=== PATIENT | male | born 2000 | race Caucasian/White ===

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

== ENCOUNTER 2019-02-01 12:58 | Day surgery (SDC) | payer MEDICAID ==
[2019-02-01] MEDS ORDERED: Decadron 4 MG INJ IV ONE (12:59)
[2019-02-01] MEDS ORDERED: Xylocaine-Mpf 2% 5 Ml Vial IJ ONE (12:59)
[2019-02-01] MEDS ORDERED: DIPRIVAN 200 MG/20 ML IV ONE (13:38)
[2019-02-01] MEDS ORDERED: Ketamine HCl 50 MG/ML ONE (13:40)
[2019-02-01] MEDS ORDERED: Lactated Ringers 1,000 ML IV ONE (14:34)
--- NOTE | 2019-02-01 16:01 | XRAY ---
Indication: Left C3-C6 MBB. Intraoperative fluoroscopy was provided for 13 seconds. 2 digital spot images submitted for interpretation demonstrates posterior needle tips projecting over the expected course of the left C3-C6 nerve roots. Correlate with intraoperative findings/report.
--- NOTE | 2019-02-01 16:08 | XRAY ---
13 seconds fluoroscopy time in surgery for left C4-C6 MBB.
== END 2019-02-01 16:07 | disposition home or self-care (01) ==
LOC: SDC-PAIN 12:58
PROVIDERS: ATTEND Psychiatry & Neurology Pain Medicine
DX: M47.812 Spondylosis without myelopathy or radiculopathy, cervical region (principal); J45.909 Unspecified asthma, uncomplicated; F31.9 Bipolar disorder, unspecified; Z79.899 Other long term (current) drug therapy
CPT/HCPCS: 64490; 64491; 64492; 72020; 77002; J1100; J2704

== ENCOUNTER 2019-03-08 14:17 | Day surgery (SDC) | payer MEDICAID ==
[2019-03-08] MEDS ORDERED: Marcaine 0.5% SDV 10 ML IJ ONE (14:18)
[2019-03-08] MEDS ORDERED: Depo-Medrol 40 MG/ML IM ONE (14:18)
[2019-03-08] MEDS ORDERED: Xylocaine 1% Vial 30 ML PF IJ ONE (14:18)
--- NOTE | 2019-03-08 22:49 | XRAY ---
Indication: Right hip injection. Intraoperative fluoroscopy was provided 14 seconds. Single digital spot image submitted for interpretation demonstrates needle tip just lateral to the right femur neck. Small amount of contrast injected for needle tip placement. Correlate with intraoperative findings/report.
--- NOTE | 2019-03-08 22:52 | XRAY ---
18 seconds of fluoroscopy was used surgery for a right intra-articular hip injection.
== END 2019-03-08 16:57 | disposition home or self-care (01) ==
LOC: SDC-PAIN 14:17
PROVIDERS: ATTEND Psychiatry & Neurology Pain Medicine
DX: M16.11 Unilateral primary osteoarthritis, right hip (principal); J45.909 Unspecified asthma, uncomplicated; F31.9 Bipolar disorder, unspecified; Z79.899 Other long term (current) drug therapy
CPT/HCPCS: 20610; 73501; 77002; J1030; J2001; Q9966

== ENCOUNTER 2019-05-10 11:09 | Day surgery (SDC) | payer MEDICAID ==
[2019-05-10] MEDS ORDERED: Depo-Medrol 40 MG/ML IM ONE (11:10)
[2019-05-10] MEDS ORDERED: Marcaine 0.5% SDV 10 ML IJ ONE (11:10)
[2019-05-10] MEDS ORDERED: Ketamine HCl 50 MG/ML ONE (12:38)
[2019-05-10] MEDS ORDERED: DIPRIVAN 200 MG/20 ML IV ONE (12:38)
--- NOTE | 2019-05-10 14:08 | XRAY ---
Indication: Right SI joint injection. Intraoperative fluoroscopy was provided for 8 seconds. 2 digital spot images submitted for interpretation demonstrates posterior needle tip projecting over the inferior right SI joint. Correlate with intraoperative findings/report.
[2019-05-10] MEDS ORDERED: Lactated Ringers 1,000 ML IV ONE (15:41)
--- NOTE | 2019-05-10 16:33 | XRAY ---
8 seconds fluoroscopy time in surgery for right SI joint injection.
== END 2019-05-10 13:00 | disposition home or self-care (01) ==
LOC: SDC-PAIN 11:09
PROVIDERS: ATTEND Psychiatry & Neurology Pain Medicine
DX: M46.1 Sacroiliitis, not elsewhere classified (principal); F41.8 Other specified anxiety disorders; G40.909 Epilepsy, unspecified, not intractable, without status epilepticus; Z79.899 Other long term (current) drug therapy
CPT/HCPCS: 27096; 72020; 77002; J1030; J2704; G0260

== ENCOUNTER 2019-05-31 11:26 | Day surgery (SDC) | payer MEDICAID ==
[2019-05-31] MEDS ORDERED: Decadron 4 MG INJ IV ONE (11:27)
[2019-05-31] MEDS ORDERED: Marcaine 0.5% SDV 10 ML IM ONE (11:27)
[2019-05-31] MEDS ORDERED: DIPRIVAN 200 MG/20 ML IV ONE ×2 (13:13→13:20)
[2019-05-31] MEDS ORDERED: Ketamine HCl 50 MG/ML ONE (13:13)
[2019-05-31] MEDS ORDERED: Lactated Ringers 1,000 ML IV ONE (14:04)
--- NOTE | 2019-05-31 14:19 | XRAY ---
Indication: C2-C4 MBB. Intraoperative fluoroscopy was provided for 17 seconds. 2 digital spot images submitted for interpretation demonstrates posterior needle tips projecting over the expected course of the left C2-C4 nerve roots. Correlate with intraoperative findings/report.
--- NOTE | 2019-05-31 16:43 | XRAY ---
17 seconds fluoroscopy time in surgery for left C2-C4 MBB.
== END 2019-05-31 13:40 | disposition home or self-care (01) ==
LOC: SDC-PAIN 11:26
PROVIDERS: ATTEND Psychiatry & Neurology Pain Medicine
DX: M47.812 Spondylosis without myelopathy or radiculopathy, cervical region (principal); F41.8 Other specified anxiety disorders; F31.9 Bipolar disorder, unspecified; J45.909 Unspecified asthma, uncomplicated; Z79.899 Other long term (current) drug therapy
CPT/HCPCS: 64490; 64491; 72020; 77002; J1100; J2704

== ENCOUNTER 2019-06-01 23:09 | Emergency (ER) | payer MEDICAID ==
[2019-06-02] MEDS ORDERED: SUBLIMAZE 100 MCG/2 ML IV ONE (00:03)
[2019-06-02] MEDS ORDERED: Norflex 60 MG/2 ML IM ONE (00:04)
[2019-06-02] MEDS ORDERED: SUBLIMAZE 100 MCG/2 ML ONE (00:06)
[2019-06-02] MEDS ORDERED: Norflex 60 MG/2 ML ONE (00:06)
[2019-06-02 00:30] VITALS: O2SAT 99
--- NOTE | 2019-06-02 00:43 | ERPHSYRPT ---
- History of Present Illness Time Seen by Provider: 06/02/19 00:03 Source: patient Exam Limitations: no limitations Patient Subjective Stated Complaint: pt states he has been having increased pain since having injection yesterday with dr tucker. states he feels like he is having muscle spasms down his lt side Triage Nursing Assessment: pt alert and oriented, answers questions approp. pt ambulatory with steady gait ntoed. respirations nonlabored with lungs cta. pt rubbing at lt sie of neck and restless in bed. 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 Physician History: Patient is a 19-year-old white male who presents with a complaint of neck pain which radiates into the left shoulder. He has been receiving injections of lidocaine and steroids in the neck on a couple occasions from the pain center. The first was 4 weeks ago the most recent yesterday and he feels like both of increased his discomfort not helped at all. He was playing football a couple years ago when he apparently had a fracture of his neck this was not treated initially and he now has this pain. Timing/Duration: other (His chronic pain.) Severity: moderate Modifying Factors: Improves With: nothing Associated Symptoms: denies symptoms Allergies/Adverse Reactions: No Known Drug Allergies Allergy (Verified 12/03/18 12:51) Home Medications: Dexmethylphenidate HCl [Focalin Xr] 30 mg PO DAILY 08/23/17 [History] Hx Tetanus, Diphtheria Vaccination/Date Given: Yes Hx Influenza Vaccination/Date Given: No Hx Pneumococcal Vaccination/Date Given: No Immunizations Up to Date: Yes - Review of Systems Constitutional: No Fever, No Chills Eyes: No Symptoms Ears, Nose, & Throat: No Symptoms Respiratory: No Cough, No Dyspnea Cardiac: No Chest Pain, No Edema, No Syncope Abdominal/Gastrointestinal: No Abdominal Pain, No Nausea, No Vomiting, No Diarrhea Genitourinary Symptoms: No Dysuria Musculoskeletal: Neck Pain, Injury, Joint Pain, No Back Pain Skin: No Rash Neurological: No Dizziness, No Focal Weakness, No Sensory Changes Psychological: No Symptoms Endocrine: No Symptoms All Other Systems: Reviewed and Negative - Past Medical History Pertinent Past Medical History: Yes Neurological History: Seizures, Other ENT History: No Pertinent History Cardiac History: No Pertinent History Respiratory History: Asthma Endocrine Medical History: No Pertinent History Musculoskeletal History: No Pertinent History GI Medical History: No Pertinent History History: No Pertinent History Psycho-Social History: Attention Deficit Disorder, Other Male Reproductive Disorders: No Pertinent History Other Medical History: meningitis, hx of cervical fx with chronic pain - Past Surgical History Past Surgical History: Yes Neuro Surgical History: No Pertinent History Cardiac: No Pertinent History Respiratory: No Pertinent History Gastrointestinal: No Pertinent History Genitourinary: No Pertinent History Musculoskeletal: No Pertinent History Male Surgical History: No Pertinent History Other Surgical History: TONSILS - Social History Smoking Status: Current some day smoker How long have you smoked: 1yr Exposure to second hand smoke: Yes Alcohol Use: None Drug Use: marijuana Patient Lives Alone: No Significant Family History: no pertinent family hx - Nursing Vital Signs Nursing Vital Signs: Initial Vital Signs Temperature 97.3 F 06/01/19 23:13 Pulse Rate 92 H 06/01/19 23:13 Respiratory Rate 20 06/01/19 23:13 Blood Pressure 147/108 06/01/19 23:13 O2 Sat by Pulse Oximetry 95 06/01/19 23:13 Pain Scale Pain Intensity 7 - Physical Exam General Appearance: mild distress, alert Eye Exam: PERRL/EOMI, eyes nml inspection Ears, Nose, Throat Exam: normal ENT inspection, TMs normal, pharynx normal, moist mucous membranes Neck Exam: normal inspection, limited range of motion, midline tenderness Respiratory Exam: normal breath sounds, lungs clear, No respiratory distress Cardiovascular Exam: regular rate/rhythm, normal heart sounds, normal peripheral pulses Gastrointestinal/Abdomen Exam: soft, normal bowel sounds, No tenderness, No mass Back Exam: normal inspection, normal range of motion, No CVA tenderness, No vertebral tenderness Extremity Exam: normal inspection, normal range of motion, pelvis stable Neurologic Exam: alert, oriented x 3, cooperative, normal mood/affect, nml cerebellar function, nml station & gait, sensation nml, No motor deficits Skin Exam: normal color, warm, dry, No rash Lymphatic Exam: No adenopathy SpO2: 99 - Radiology Exams Left Shoulder X-ray Interpretation: Interpreted by me, Negative C-Spine X-ray Interpretation: Interpreted by me, Other (Loss of lordosis suggesting spasm) Ordered Tests: Active Orders 24 hr Category Date Time Status CERVICAL SPINE (2 OR 3 VIEW) Stat Exams 06/01/19 00:32 Taken SHOULDER Stat Exams 06/01/19 00:32 Taken Medication Summary Discontinued Medications Generic Name Dose Route Start Last Admin Trade Name Freq PRN Reason Stop Dose Admin Fentanyl Citrate 75 mcg 06/02/19 00:03 06/02/19 00:07 Sublimaze 100 Mcg/2 Ml IV 06/02/19 00:04 75 mcg STAT ONE Administration Fentanyl Citrate Confirm 06/02/19 00:06 Sublimaze 100 Mcg/2 Ml Administered 06/02/19 00:07 Dose 100 mcg .ROUTE .STK-MED ONE Orphenadrine Citrate 60 mg 06/02/19 00:04 06/02/19 00:08 Norflex 60 Mg/2 Ml IM 06/02/19 00:05 60 mg STAT ONE Administration Orphenadrine Citrate Confirm 06/02/19 00:06 Norflex 60 Mg/2 Ml Administered 06/02/19 00:07 Dose 60 mg .ROUTE .STK-MED ONE - Progress Progress: improved, pain not gone completely - Departure Departure Disposition: Home Clinical Impression: Chronic neck pain Condition: Stable Critical Care Time: No Referrals: OSMIN MULLINS MD [Primary Care Provider] - Instructions: Generalized Neck Pain (DC) Prescriptions: Cyclobenzaprine HCl [Flexeril] 5 mg PO TID 10 Days #30 tablet
[2019-06-02 01:01] VITALS: BP 131/78; PULSE 62
--- NOTE | 2019-06-02 08:48 | XRAY ---
Indication: Neck pain following fall 2 days ago. Comparison: None 3 views of the cervical spine demonstrates lordotic straightening, positional versus paraspinal spasm. Vertebral body heights/disc spaces maintained. No bony, articular, or soft tissue abnormalities.
--- NOTE | 2019-06-02 08:48 | XRAY ---
Indication: Pain following fall 2 days ago. Comparison: None 3 views of the left shoulder obtained. No bony, articular, or soft tissue abnormalities.
== END 2019-06-02 01:04 | disposition home or self-care (01) ==
LOC: ED 23:09
DX: M54.2 Cervicalgia (principal); G89.29 Other chronic pain; Z79.899 Other long term (current) drug therapy; M25.512 Pain in left shoulder
CPT/HCPCS: 72040; 73030; 96372; 99284; J2360; J3010

== ENCOUNTER 2019-06-22 11:25 | Emergency (ER) | payer MEDICAID ==
[2019-06-22] MEDS ORDERED: TORAdol 30 mg Injection IM ONE (11:37)
[2019-06-22 11:38] VITALS: O2SAT 98
[2019-06-22] MEDS ORDERED: Cyclobenzaprine 10 MG PO ONE (11:38)
[2019-06-22] MEDS ORDERED: Cyclobenzaprine 10 MG ONE (11:42)
[2019-06-22] MEDS ORDERED: TORAdol 30 mg Injection ONE (11:42)
--- NOTE | 2019-06-22 11:59 | ERPHSYRPT ---
- History of Present Illness Time Seen by Provider: 06/22/19 11:28 Source: patient Exam Limitations: no limitations Patient Subjective Stated Complaint: Pt states "I fractured my neck two and a half years ago and I have so much pain in my neck that I cannot take it anymore. I have been to neurosurgery and they said they do not need to do surgery but I hurt so bad." Triage Nursing Assessment: Pt presented alert and oriented X 3, ski pwd Pt ambulates with an upright steady gait, able to speak in clear full sentences. pt in no respiratory distres.s Physician History: Patient has chronic neck pain. Patient states that he had an accident several years ago. He had a fractured neck at that point in time. Patient states that he sees a neurosurgeon, orthopedic surgeon, chiropractor, massage therapist. He describes no new falls or trauma. Patient says he has some numbness in his left arm. However, no other strokelike symptoms, tingling, paresthesias. Timing/Duration: constant Method of Injury: fall Quality: dull Back Pain Location: C-spine Severity of Pain-Max: none Severity of Pain-Current: none Modifying Factors: Improves With: cold therapy, immobilization, movement Associated Symptoms: denies symptoms, No fever Allergies/Adverse Reactions: No Known Drug Allergies Allergy (Verified 12/03/18 12:51) Home Medications: Dexmethylphenidate HCl [Focalin Xr] 30 mg PO DAILY 08/23/17 [History] Hx Tetanus, Diphtheria Vaccination/Date Given: Yes Hx Influenza Vaccination/Date Given: Yes Hx Pneumococcal Vaccination/Date Given: No Immunizations Up to Date: Yes - Review of Systems Constitutional: No Fever, No Chills Eyes: No Symptoms Ears, Nose, & Throat: No Symptoms Respiratory: No Cough, No Dyspnea Cardiac: No Chest Pain, No Edema, No Syncope Abdominal/Gastrointestinal: No Abdominal Pain, No Nausea, No Vomiting, No Diarrhea Genitourinary Symptoms: No Dysuria Musculoskeletal: Neck Pain, No Back Pain Skin: No Rash Neurological: No Dizziness, No Focal Weakness, No Sensory Changes Psychological: No Symptoms Endocrine: No Symptoms All Other Systems: Reviewed and Negative - Past Medical History Pertinent Past Medical History: Yes Neurological History: Seizures, Other ENT History: No Pertinent History Cardiac History: No Pertinent History Respiratory History: Asthma Endocrine Medical History: No Pertinent History Musculoskeletal History: No Pertinent History GI Medical History: No Pertinent History History: No Pertinent History Psycho-Social History: Attention Deficit Disorder, Other Male Reproductive Disorders: No Pertinent History Other Medical History: meningitis, hx of cervical fx with chronic pain - Past Surgical History Past Surgical History: Yes Neuro Surgical History: No Pertinent History Cardiac: No Pertinent History Respiratory: No Pertinent History Gastrointestinal: No Pertinent History Genitourinary: No Pertinent History Musculoskeletal: No Pertinent History Male Surgical History: No Pertinent History Other Surgical History: TONSILS - Social History Smoking Status: Current every day smoker How long have you smoked: years Exposure to second hand smoke: Yes Alcohol Use: None Drug Use: marijuana Patient Lives Alone: No Significant Family History: no pertinent family hx - Nursing Vital Signs Nursing Vital Signs: Initial Vital Signs Temperature 97.5 F 06/22/19 11:32 Pulse Rate 76 06/22/19 11:32 Respiratory Rate 18 06/22/19 11:32 Blood Pressure 155/80 06/22/19 11:32 O2 Sat by Pulse Oximetry 98 06/22/19 11:32 Pain Scale Pain Intensity 8 - Physical Exam General Appearance: no apparent distress, alert Eye Exam: PERRL/EOMI, eyes nml inspection Neck Exam: normal inspection, non-tender, supple, full range of motion, No meningismus, No midline tenderness Respiratory Exam: normal breath sounds, lungs clear, No respiratory distress Cardiovascular Exam: regular rate/rhythm, normal heart sounds Gastrointestinal Exam: soft, No tenderness, No mass Extremity Exam: normal inspection, normal range of motion, No calf tenderness, No pedal edema Neurologic Exam: alert, oriented x 3, cooperative, gem cutter II-XII nml as tested, normal mood/affect, nml station & gait, sensation nml, No motor deficits Skin Exam: normal color, warm, dry, No rash SpO2 Interpretation: normal SpO2: 98 Comments: Mental status:The patient is alert, attentive, and oriented. Speech: clear and fluent with good repetition, comprehension, and naming. Cranial nerves: CN II: Visual garcia are full to confrontation. PERRLA CN III, IV, : EOMI, no nystagmus, no ptosis CN V: Facial sensation is intact to touch in all 3 divisions bilaterally. CN VII: Face is symmetric with normal eye closure and smile. CN VII: Hearing is normal to rubbing fingers CN IX, X: Palate elevates symmetrically. Phonation is normal. CN XI: Head turning and shoulder shrug are intact CN XII: Tongue is midline with normal movements and no atrophy. Motor: There is no pronator drift of out-stretched arms. Muscle bulk and tone are normal. Strength is full bilaterally. Reflexes: Reflexes are 2+ and symmetric at the biceps, triceps, knees, and ankles. Plantar responses are flexor. Sensory: Light touch sense are intact in bilateral upper and lower extremities. There is no sign of neglect. Coordination: Rapid alternating movements are intact. There is no dysmetria on [id number] and [id number]. There are no abnormal or extraneous movements. Romberg is absent. Gait/Stance: Posture is normal. Gait is steady with normal steps, base, arm swing, and turning. Heel and toe walking are normal. Tandem gait is normal. Ordered Tests: Medication Summary Discontinued Medications Generic Name Dose Route Start Last Admin Trade Name Freq PRN Reason Stop Dose Admin Cyclobenzaprine HCl 10 mg 06/22/19 11:38 06/22/19 12:20 Cyclobenzaprine 10 Mg PO 06/22/19 11:39 10 mg STAT ONE Administration Cyclobenzaprine HCl Confirm 06/22/19 11:42 Cyclobenzaprine 10 Mg Administered 06/22/19 11:43 Dose 10 mg .ROUTE .STK-MED ONE Ketorolac Tromethamine 30 mg 06/22/19 11:37 06/22/19 12:19 Toradol 30 Mg Injection IM 06/22/19 11:38 30 mg STAT ONE Administration Ketorolac Tromethamine Confirm 06/22/19 11:42 Toradol 30 Mg Injection Administered 06/22/19 11:43 Dose 30 mg .ROUTE .STK-MED ONE - Progress Progress: improved Progress Note: 06/22/19 13:24 Patient declines an x-ray today. Declines any other imaging. Normal neuro exam. Appears to be acute on chronic pain. Patient given Toradol and Flexeril here. He feels somewhat improved. Given that patient is already undergoing evaluation by neurosurgeon, orthopedics, chronic pain. We will allow them to prescribe long-term pain medication. In the short-term he can continue to do ice, icy hot, massage therapy, Tylenol ibuprofen as needed. Plan of care was discussed with patient and patients family: all questions answered. They are agreeable to be discharged home and both verbal and printed discharge instructions were provided. The patient and patients family agreed to seek outpatient follow up as discussed. They were given strict instructions to return to the emergency department for worsening symptoms or any other emergent concerns. They verbalized understanding. - Departure Departure Disposition: Home, Extended Care Facility Clinical Impression: Chronic neck pain Condition: Stable Critical Care Time: No Referrals: OSMIN MULLINS MD [Primary Care Provider] - Instructions: Cervical Muscle Strain (DC)
[2019-06-22 12:52] VITALS: BP 110/74; PULSE 72
== END 2019-06-22 12:55 | disposition home or self-care (01) ==
LOC: ED 11:25
DX: M54.2 Cervicalgia (principal); G89.29 Other chronic pain
CPT/HCPCS: 96372; 99283; J1885; A9270-GY

== ENCOUNTER 2019-06-23 18:14 | Emergency (ER) | payer MEDICAID ==
--- NOTE | 2019-06-23 18:28 | ERPHSYRPT ---
- History of Present Illness Time Seen by Provider: 06/23/19 18:28 Source: patient Exam Limitations: no limitations Physician History: This is a 19-year-old white male who has chronic neck pain issues. Patient sees Dr. Smith in the pain clinic. He was recently seen by Dr. Jevon Lee in the pain clinic. He was also seen here 24 hours ago in this emergency department for similar symptoms of left-sided neck pain and left shoulder pain. On 06/22/2019 he stated there was no new falls or trauma to the area. However today he is reported to the nurse that there was a fall or injury 2 days ago. Patient is being followed by a neurosurgeon, orthopedic surgeon, pain specialist , chiropractor and massage therapist. Patient has some numbness to the left arm. Yesterday, in the emergency department here, he declined x-rays. He was given Toradol and Flexeril. Patient takes gabapentin chronically. He was very busy in the emergency department and patient was not evaluated by me and wanted to leave. We offered him to sign a AMA form. He declined and left the emergency department. Allergies/Adverse Reactions: No Known Drug Allergies Allergy (Verified 06/23/19 19:34) Home Medications: Dexmethylphenidate HCl [Focalin Xr] 30 mg PO DAILY 08/23/17 [History] Gabapentin 600 mg PO TID 06/23/19 [History] Hx Tetanus, Diphtheria Vaccination/Date Given: Yes Hx Influenza Vaccination/Date Given: Yes Hx Pneumococcal Vaccination/Date Given: No - Past Medical History Pertinent Past Medical History: Yes Neurological History: Seizures, Other ENT History: No Pertinent History Cardiac History: No Pertinent History Respiratory History: Asthma Endocrine Medical History: No Pertinent History Musculoskeletal History: No Pertinent History GI Medical History: No Pertinent History History: No Pertinent History Psycho-Social History: Attention Deficit Disorder, Other Male Reproductive Disorders: No Pertinent History Other Medical History: meningitis, hx of cervical fx with chronic pain - Past Surgical History Past Surgical History: Yes Neuro Surgical History: No Pertinent History Cardiac: No Pertinent History Respiratory: No Pertinent History Gastrointestinal: No Pertinent History Genitourinary: No Pertinent History Musculoskeletal: No Pertinent History Male Surgical History: No Pertinent History Other Surgical History: TONSILS - Social History Smoking Status: Current every day smoker How long have you smoked: years Exposure to second hand smoke: Yes Alcohol Use: None Drug Use: marijuana Patient Lives Alone: No Significant Family History: no pertinent family hx - Nursing Vital Signs Nursing Vital Signs: Initial Vital Signs Temperature 97.8 F 06/23/19 19:24 Pulse Rate 77 06/23/19 19:24 Respiratory Rate 17 06/23/19 19:24 Blood Pressure 120/88 06/23/19 19:24 O2 Sat by Pulse Oximetry 100 06/23/19 19:24 Pain Scale Pain Intensity 10 - Progress Progress: unchanged - Departure Departure Disposition: AMA Clinical Impression: Neck pain on left side, Shoulder pain Condition: Stable Critical Care Time: No Referrals: OSMIN MULLINS MD [Primary Care Provider] -
[2019-06-23 19:25] VITALS: O2SAT 100
[2019-06-23] MEDS ORDERED: Hydromorphone 1 mg/ml Ampule IM ONE (20:41)
[2019-06-23] MEDS ORDERED: solu-MEDROL 125 MG IM ONE (20:42)
[2019-06-23] MEDS ORDERED: ZOFRAN ODT 4 MG PO ONE (20:42)
[2019-06-23] MEDS ORDERED: ZOFRAN ODT 4 MG ONE (21:00)
[2019-06-23] MEDS ORDERED: Hydromorphone 1 mg/ml Ampule ONE (21:00)
[2019-06-23] MEDS ORDERED: solu-MEDROL 125 MG ONE (21:01)
[2019-06-23 21:48] VITALS: BP 133/95; PULSE 72
== END 2019-06-23 21:20 | disposition left against medical advice (07) ==
LOC: ED 18:14
DX: M54.2 Cervicalgia (principal); M25.512 Pain in left shoulder; G89.29 Other chronic pain; F45.42 Pain disorder with related psychological factors; G40.909 Epilepsy, unspecified, not intractable, without status epilepticus; Z72.0 Tobacco use
CPT/HCPCS: 96372; 99284; J1170; J2930; Q0162

== ENCOUNTER 2020-04-09 11:57 | Emergency (ER) | payer MEDICAID ==
[2020-04-09] MEDS ORDERED: XYLOCAINE 1% HCL 20 ML MDV ONE (12:18)
--- NOTE | 2020-04-09 12:43 | ERPHSYRPT ---
- History of Present Illness Time Seen by Provider: 04/09/20 12:11 Patient Subjective Stated Complaint: Pt c/o of an abcess under his right arm pit for the past 5 days Triage Nursing Assessment: Pt brought self to hospital, vitals wnl, abcess under right arm pit, approx 2cm x 2cm, draining, rates pain 8/10, doesn't appear to be in any distress Physician History: 20 years old male presented in the ER with chief complaint of right axilla swelling for the last 5 days. Patient reported started as a pea size and currently is size of a walnut associated with moderate to severe sharp shooting pain which is aggravated with movements, palpation and some radiation of pain to anterior chest and lateral chest wall as well. He noticed minimal discharge. Timing/Duration: day(s) (5), sudden, worse Quality: painful Severity: moderate, severe Location: axillary (R) Possible Causes: no cause identified Modifying Factors: Improves With: other Associated Symptoms: rash, swelling/mass/lumps Allergies/Adverse Reactions: No Known Drug Allergies Allergy (Verified 04/09/20 12:09) Home Medications: Dexmethylphenidate HCl [Focalin Xr] 30 mg PO DAILY 08/23/17 [History] Gabapentin 600 mg PO TID 06/23/19 [History] Tizanidine HCl 4 mg PO DAILY 01/08/20 [History] Hx Tetanus, Diphtheria Vaccination/Date Given: Yes Hx Influenza Vaccination/Date Given: Yes Hx Pneumococcal Vaccination/Date Given: No Travel Risk - International Travel Have you traveled outside of the country in past 3 weeks: No - Coronavirus Screening Are you exhibiting any of the following symptoms?: No - Review of Systems Constitutional: No Symptoms Eyes: No Symptoms Ears, Nose, & Throat: No Symptoms Respiratory: No Symptoms Cardiac: No Symptoms Abdominal/Gastrointestinal: No Symptoms Musculoskeletal: Myalgias Skin: Cellulitis, Rash, Skin Lesions Neurological: No Symptoms Psychological: No Symptoms Endocrine: No Symptoms Hematologic/Lymphatic: No Symptoms - Past Medical History Pertinent Past Medical History: Yes Neurological History: Seizures, Other ENT History: No Pertinent History Cardiac History: No Pertinent History Respiratory History: Asthma Endocrine Medical History: No Pertinent History Musculoskeletal History: No Pertinent History GI Medical History: No Pertinent History History: No Pertinent History Psycho-Social History: Attention Deficit Disorder, Other Male Reproductive Disorders: No Pertinent History Other Medical History: meningitis, hx of cervical fx with chronic pain - Past Surgical History Past Surgical History: Yes Neuro Surgical History: No Pertinent History Cardiac: No Pertinent History Respiratory: No Pertinent History Gastrointestinal: No Pertinent History Genitourinary: No Pertinent History Musculoskeletal: No Pertinent History Male Surgical History: No Pertinent History Other Surgical History: TONSILS - Social History Smoking Status: Current every day smoker How long have you smoked: years Exposure to second hand smoke: Yes Alcohol Use: None Drug Use: marijuana Patient Lives Alone: No Significant Family History: no pertinent family hx - Nursing Vital Signs Nursing Vital Signs: Initial Vital Signs Temperature 98.3 F 04/09/20 12:02 Pulse Rate 83 04/09/20 12:02 Blood Pressure 128/78 04/09/20 12:02 O2 Sat by Pulse Oximetry 100 04/09/20 12:02 Pain Scale Pain Intensity 8 - Physical Exam General Appearance: no apparent distress Eye Exam: PERRL/EOMI Ears, Nose, Throat Exam: normal ENT inspection, pharynx normal Neck Exam: normal inspection, non-tender, supple, full range of motion Respiratory Exam: normal breath sounds, chest tenderness, other (3x3 cm swelling right axilla, warm, tender, positive fluctuation , red streaking aling the lateral chest wall) Cardiovascular Exam: regular rate/rhythm, normal heart sounds Back Exam: normal inspection, normal range of motion Extremity Exam: normal inspection, normal range of motion Neurologic Exam: alert, oriented x 3, cooperative Skin Exam: normal color SpO2 Interpretation: normal SpO2: 100 O2 Delivery: Room Air Procedures - Incision and Drainage Timeout: Performed Site: right axilla Anesthesia: 1% Lidocaine cc's of anesthesia: other (13ml) Blade Size: 11 I & D Procedure: hibiclens prep, gauze wick placed Results: moderate amount pus Ordered Tests: Medication Summary Discontinued Medications Generic Name Dose Route Start Last Admin Trade Name Freq PRN Reason Stop Dose Admin Lidocaine HCl Confirm 04/09/20 12:18 Xylocaine 1% Hcl 20 Ml Mdv Administered 04/09/20 12:19 Dose 10 ml .ROUTE .STK-MED ONE - Progress Progress Note: 04/09/20 after informed consent incision and drainages done. Packing placed in. We will start him on Bactrim. Recommended outpatient follow-up. Discussed signs symptoms of worsening needing return to ER which he seems understanding. Counseled pt/family regarding: diagnosis, need for follow-up - Departure Departure Disposition: Home Clinical Impression: Abscess of axilla, right Condition: Stable Critical Care Time: No Referrals: OSMIN MULLINS MD [Primary Care Provider] - Follow Up with PCP/3 days HERNAN TOM [COURTESY STAFF] - (2-3 days for re evaluation) Instructions: Skin Abscess, MRSA (DC), Wound Infection Additional Instructions: Keep it clean. Take Tylenol/ibuprofen as needed for pain. Daily dressing changes and packing. Follow-up with primary care and general surgery for reevaluation. Return to ER for increasing pain, discharge, redness, fever chills etc. Prescriptions: Ibuprofen 600 mg PO Q6HPRN PRN 10 Days #20 tablet PRN Reason: Pain Smz/Tmp Ds Tablet [Bactrim Ds Tablet] 1 udtab PO BID #14 tablet
[2020-04-09 13:02] VITALS: BP 114/72; PULSE 80
[2020-04-09 13:07] VITALS: O2SAT 100
== END 2020-04-09 13:02 | disposition home or self-care (01) ==
LOC: ED 11:57
DX: L02.411 Cutaneous abscess of right axilla (principal); M79.621 Pain in right upper arm; Z79.899 Other long term (current) drug therapy
CPT/HCPCS: 10060; 96372; 99283

== ENCOUNTER 2020-04-15 23:35 | Emergency (ER) | payer MEDICAID ==
[2020-04-16] MEDS ORDERED: TORAdol 30 mg Injection IM ONE (00:24)
--- NOTE | 2020-04-16 00:45 | ERPHSYRPT ---
- History of Present Illness Allergies/Adverse Reactions: No Known Drug Allergies Allergy (Verified 04/09/20 12:09) Home Medications: Dexmethylphenidate HCl [Focalin Xr] 30 mg PO DAILY 08/23/17 [History] Gabapentin 600 mg PO TID 06/23/19 [History] Tizanidine HCl 4 mg PO DAILY 01/08/20 [History] Hx Tetanus, Diphtheria Vaccination/Date Given: Yes Hx Influenza Vaccination/Date Given: Yes Hx Pneumococcal Vaccination/Date Given: No - Past Medical History Pertinent Past Medical History: Yes Neurological History: Seizures, Other ENT History: No Pertinent History Cardiac History: No Pertinent History Respiratory History: Asthma Endocrine Medical History: No Pertinent History Musculoskeletal History: No Pertinent History GI Medical History: No Pertinent History History: No Pertinent History Psycho-Social History: Attention Deficit Disorder, Other Male Reproductive Disorders: No Pertinent History Other Medical History: meningitis, hx of cervical fx with chronic pain - Past Surgical History Past Surgical History: Yes Neuro Surgical History: No Pertinent History Cardiac: No Pertinent History Respiratory: No Pertinent History Gastrointestinal: No Pertinent History Genitourinary: No Pertinent History Musculoskeletal: No Pertinent History Male Surgical History: No Pertinent History Other Surgical History: TONSILS - Social History Smoking Status: Current every day smoker How long have you smoked: years Exposure to second hand smoke: Yes Alcohol Use: None Drug Use: marijuana Patient Lives Alone: No Significant Family History: no pertinent family hx - Nursing Vital Signs Nursing Vital Signs: Initial Vital Signs Temperature 98.2 F 04/15/20 23:35 Pulse Rate 72 04/15/20 23:35 Respiratory Rate 16 04/15/20 23:35 Blood Pressure 124/67 04/15/20 23:35 O2 Sat by Pulse Oximetry 99 04/15/20 23:35 Pain Scale Pain Intensity 7 - Physical Exam SpO2: 99 Ordered Tests: Medication Summary Discontinued Medications Generic Name Dose Route Start Last Admin Trade Name Freq PRN Reason Stop Dose Admin Ketorolac Tromethamine 60 mg 04/16/20 00:24 Toradol 30 Mg Injection IM 04/16/20 00:25 STAT ONE - Departure Referrals: OSMIN MULLINS MD [Primary Care Provider] -
[2020-04-16] MEDS ORDERED: TORAdol 30 mg Injection ONE (00:52)
[2020-04-16 00:56] VITALS: O2SAT 100
--- NOTE | 2020-04-16 01:02 | ERPHSYRPT ---
- History of Present Illness Source: patient Patient Subjective Stated Complaint: pt c/o headache, fever, sob, body aches and upset stomach. Triage Nursing Assessment: pt c/o headache, fever, sob, body aches and upset stomach x3 days. Pt denies any diarrhea or vomiting. Pt was at work and began feeling worse and was sent home. Physician History: 20 yo wm w CV19 exposure presents w [place]/chills/myalgias/arthralgias/coryza wo N/V/D/cough. SO in ER w similar CV19 symptoms. Timing/Duration: day(s) (3 days) Cough Quality/Degree: no cough Possible Cause: no prior episodes Modifying Factors: Improves With: nothing Associated Symptoms: chills, headache, muscle aches, nasal congestion, No fever, No chest pain/soreness, No cough, No dizziness, No earache, No facial pain, No lightheadedness, No shortness of breath, No sinus infection, No sore throat Allergies/Adverse Reactions: No Known Drug Allergies Allergy (Verified 04/16/20 00:48) Home Medications: Dexmethylphenidate HCl [Focalin Xr] 30 mg PO DAILY 08/23/17 [History] Gabapentin 600 mg PO TID 06/23/19 [History] Tizanidine HCl 4 mg PO HS 01/08/20 [History] Hx Tetanus, Diphtheria Vaccination/Date Given: Yes Hx Influenza Vaccination/Date Given: No Hx Pneumococcal Vaccination/Date Given: No Immunizations Up to Date: Yes Travel Risk - International Travel Have you traveled outside of the country in past 3 weeks: No - Coronavirus Screening Are you exhibiting any of the following symptoms?: Yes Symptoms: Fever, Shortness of Breath, Headaches/Body Aches/Fatigue Close contact with a COVID-19 positive Pt in past 14-21 Days: Yes - Review of Systems Constitutional: No Symptoms, Chills, Fatigue Eyes: No Symptoms Ears, Nose, & Throat: Nose Congestion Respiratory: No Symptoms Cardiac: No Symptoms Abdominal/Gastrointestinal: No Symptoms Genitourinary Symptoms: No Symptoms Musculoskeletal: No Symptoms, Arthralgias, Myalgias Skin: No Symptoms Neurological: No Symptoms, Headache Psychological: No Symptoms Endocrine: No Symptoms Hematologic/Lymphatic: No Symptoms Immunological/Allergic: No Symptoms - Past Medical History Pertinent Past Medical History: Yes Neurological History: Migraines, Seizures, Other ENT History: No Pertinent History Cardiac History: No Pertinent History Respiratory History: Asthma Endocrine Medical History: No Pertinent History Musculoskeletal History: No Pertinent History GI Medical History: No Pertinent History History: No Pertinent History Psycho-Social History: Attention Deficit Disorder, Other Male Reproductive Disorders: No Pertinent History Other Medical History: meningitis, hx of cervical fx with chronic pain, fx nose - Past Surgical History Past Surgical History: Yes Neuro Surgical History: No Pertinent History Cardiac: No Pertinent History Respiratory: No Pertinent History Gastrointestinal: No Pertinent History Genitourinary: No Pertinent History Musculoskeletal: No Pertinent History Male Surgical History: No Pertinent History Other Surgical History: TONSILS - Social History Smoking Status: Current every day smoker How long have you smoked: 3 yrs Exposure to second hand smoke: Yes Alcohol Use: None Drug Use: marijuana Patient Lives Alone: No Significant Family History: no pertinent family hx - Nursing Vital Signs Nursing Vital Signs: Initial Vital Signs Temperature 98.2 F 04/15/20 23:35 Pulse Rate 72 04/15/20 23:35 Respiratory Rate 16 04/15/20 23:35 Blood Pressure 124/67 04/15/20 23:35 O2 Sat by Pulse Oximetry 99 04/15/20 23:35 Pain Scale Pain Intensity 7 - Physical Exam General Appearance: no apparent distress Eye Exam: PERRL/EOMI, eyes nml inspection Ears, Nose, Throat Exam: normal ENT inspection, TMs normal, pharynx normal, moist mucous membranes Neck Exam: normal inspection, non-tender, supple, full range of motion, No meningismus, No mass, No Brudzinski, No Kernig's Respiratory Exam: normal breath sounds, lungs clear, airway intact, No respiratory distress Cardiovascular Exam: regular rate/rhythm, normal heart sounds, capillary refill <2 sec, No murmur Gastrointestinal/Abdomen Exam: soft, normal bowel sounds, No tenderness Extremity Exam: normal inspection, normal range of motion Neurologic Exam: alert, oriented x 3, cooperative, 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, normal mood/affect, nml cerebellar function, nml station & gait, sensation nml, No motor deficits, No sensory deficit Skin Exam: normal color, warm, dry, No rash Lymphatic Exam: No adenopathy SpO2 Interpretation: normal SpO2: 100 O2 Delivery: Room Air - Course Nursing assessment & vital signs reviewed: Yes Ordered Tests: Medication Summary Discontinued Medications Generic Name Dose Route Start Last Admin Trade Name Evan PRN Reason Stop Dose Admin Ketorolac Tromethamine 60 mg 04/16/20 00:24 04/16/20 00:53 Toradol 30 Mg Injection IM 04/16/20 00:25 60 mg STAT ONE Administration Ketorolac Tromethamine Confirm 04/16/20 00:52 Toradol 30 Mg Injection Administered 04/16/20 00:53 Dose 60 mg .ROUTE .STGraitec-MED ONE - Progress Progress Note: 04/16/20 01:00 CV19 test sent to lab. Pt advised to quarantine for 14 days 60mg IM toradol Counseled pt/family regarding: lab results, need for follow-up - Departure Departure Disposition: Home Clinical Impression: COVID-19 Condition: Stable Critical Care Time: No Referrals: OSMIN MULLINS MD [Primary Care Provider] - Instructions: Headache, Adult (DC), Coronavirus Disease 2019 (COVID-19) (DC) Additional Instructions: Fluids/Rest Motrin/tylenol Quarantine for 14 days Return to ER for increasing pain or shortness of breath
[2020-04-16 01:09] VITALS: BP 121/73; PULSE 72
== END 2020-04-16 01:11 | disposition home or self-care (01) ==
LOC: ED 23:35
DX: U07.1 COVID-19 (principal); R51.9 Headache, unspecified; R50.9 Fever, unspecified; R06.02 Shortness of breath; M79.10 Myalgia, unspecified site
CPT/HCPCS: 36000; 96372; 99284; U0003; J1885

== ENCOUNTER 2020-05-24 06:16 | Emergency (ER) | payer MEDICAID ==
[2020-05-24] MEDS ORDERED: Sodium Chloride 0.9% 1000 ML 1,000 ML IV STA (06:52)
[2020-05-24 07:12] LABS: Absolute Neutrophil Ct (ANC) 5.01 (1.4-6.9); BASOPHIL % 0.4 % (0.0-0.4); Basophil (Absolute #) 0.03 (0-0.4); Eosinophil % 1.8 % (0.00-5.0); Eosinophil (Absolute #) 0.14 (0-0.5); Hematocrit 42.8 % (42-50); Hemoglobin 14.7 gm/dl (12.5-18.0); Lymphocytes % 24.6 % (24.0-44.0); Mean Cell Volume 89.9 fl (78-100); Mean Corpuscular Hemoglobin 30.9 pg (26-32); Mean Corpuscular Hgb Concent. 34.3 g/dl (32-36); Mean Platelet Volume 10.1 fl (7.5-11.0); Monocyte (Absolute #) 0.64 (0.0-1.3); Monocytes % 8.3 % (0.0-12.0); Neutrophil % 64.9 % (36.0-66.0); Platelet Count 291 K/mm3 (150-450); Red Blood Count 4.76 M/mm3 (4.1-5.6); Red Cell Distribution Width 12.6 % (11.5-14.0); White Blood Count 7.7 K/mm3 (4.0-10.5)
[2020-05-24 07:22] LABS: ACETAMINOPHEN < 10 ug/ml (10-30); ETHYL ALCOHOL < 10 mg/dL (0-10); SALICYLATE < 1.0 mg/dL (2-20)
[2020-05-24 07:24] LABS: ALBUMIN 4.9 g/dL (3.5-5.0); ALKALINE PHOSPHATASE 63 U/L (38-126); ANION GAP 13.4 MEQ/L (5-15); BLOOD UREA NITROGEN 15 mg/dL (9-20); CHLORIDE 104 mmol/L (98-107); Calcium 10.4 mg/dL (8.4-10.2); Carbon Dioxide 25 mmol/L (22-30); Creatinine 1 0.95 mg/dL (0.66-1.25); EST GLOMERULAR FILTRATION RATE > 60.0 ML/MIN; Glucose 129 mg/dL (74-106); MAGNESIUM 2.1 mg/dL (1.6-2.3); Potassium 3.5 mmol/L (3.5-5.1); SGOT/AST 25 U/L (17-59); SGPT/ALT 16 U/L (0-50); SODIUM 139 mmol/L (137-145); Total Protein 8.1 g/dL (6.3-8.2)
--- NOTE | 2020-05-24 07:24 | ERPHSYRPT ---
<LINDA BARBOZA - Last Filed: 05/24/20 07:34> - History of Present Illness Time Seen by Provider: 05/24/20 06:40 Historian: patient Exam Limitations: no limitations Patient Subjective Stated Complaint: Patient states " I woke up around [id number] this morning having severe neck and chest pain and then started feeling like I couldn't breath". Triage Nursing Assessment: Patient arrived to ED and ambulated to room without difficulty. Patient A/O times 4. Patient non-cooperative with attempting to get EKG, stated he can't hold still. RN attempted to get oral temp and patient was unable to follow directions to close mouth. Patient then became tearful and stated I feel like I'm having a heart attack. Patient then stopped crying and was messing with phone. Patient noted with bilateral eyes blood shot. Patient noted with alcohol smell. Patient admitted that he probably had been drinking last night but unsure how much. Lungs clear bilateral A/P throughout. Pupils dilated and reactive to light. Bilateral hand behavioral health therapist equal and strong. No edema noted. Cap reill < 3 seconds. No S/S of respiratory distress. 02 sat upon arr ival 100% on room air. Patient noted to have shakiness to bilateral upper and lower extremities. + radial and pedal pulses bilateral. Skin turgor < 3 seconds. Oral mucosa moist. No S/S of dehydration noted. MD entered room and had mentioned about patient getting X-Ray. Patient refused and stated he didn't want any more X-Rays. Education provided to patient on importance R/T the neck pain. Patient continues to refuse. Patient denies any falls or trauma. Patient will talk out of his mind and will slur speech at times. Physician History: Patient is a 20-year-old male presents to our emergency department with complaints of chest pain, SOB and neck pain. Patient awoke at approximately 4 AM this morning with symptoms. Patient states he had been drinking last night. Patient states he took a Xanax pill. He does not have a Xanax prescription of the pill belonged to a "stephanie." Patient otherwise denies doing other drugs. Chest pain described as an ache that is mid chest. Neck pain is described as a ache at the prominence of C7. Patient states he has a history of neck fracture. Patient denies recent trauma. No associated nausea vomiting. No diaphoresis. Symptoms are moderate in intensity. No specific worsening or improving factors. Patient states is otherwise healthy. He voices no other complaints at this time. Timing/Duration: today Activities at Onset: sleep Quality: aching Location: substernal Chest Pain Radiation: no radiation Severity of Pain-Max: moderate Severity of Pain-Current: mild Modifying Factors: Improves With: nothing Associated Symptoms: denies symptoms Nitro Today/Relief: no nitro taken today Aspirin Treatment Today: no aspirin today Allergies/Adverse Reactions: No Known Drug Allergies Allergy (Verified 05/24/20 06:27) Home Medications: Dexmethylphenidate HCl [Focalin Xr] 30 mg PO DAILY 08/23/17 [History] Gabapentin 600 mg PO TID 06/23/19 [History] Tizanidine HCl 4 mg PO HS 01/08/20 [History] Hx Tetanus, Diphtheria Vaccination/Date Given: Yes Hx Influenza Vaccination/Date Given: No Hx Pneumococcal Vaccination/Date Given: No Immunizations Up to Date: Yes Travel Risk - International Travel Have you traveled outside of the country in past 3 weeks: No - Coronavirus Screening Are you exhibiting any of the following symptoms?: Yes Symptoms: Shortness of Breath Close contact with a COVID-19 positive Pt in past 14-21 Days: No - Review of Systems Constitutional: No Symptoms, No Fever, No Chills Eyes: No Symptoms Ears, Nose, & Throat: No Symptoms Respiratory: No Symptoms, No Cough, No Dyspnea Cardiac: No Symptoms, No Chest Pain, No Edema, No Syncope Abdominal/Gastrointestinal: No Symptoms, No Abdominal Pain, No Nausea, No Vomiting, No Diarrhea Genitourinary Symptoms: No Symptoms, No Dysuria Musculoskeletal: No Symptoms, No Back Pain, No Neck Pain Skin: No Symptoms, No Rash Neurological: No Symptoms, No Dizziness, No Focal Weakness, No Sensory Changes Psychological: No Symptoms, No Suicidal Ideations, No Homicidal Ideations Endocrine: No Symptoms Hematologic/Lymphatic: No Symptoms Immunological/Allergic: No Symptoms All Other Systems: Reviewed and Negative - Past Medical History Pertinent Past Medical History: Yes Neurological History: Migraines, Seizures, Other ENT History: No Pertinent History Cardiac History: No Pertinent History Respiratory History: Asthma Endocrine Medical History: No Pertinent History Musculoskeletal History: No Pertinent History GI Medical History: No Pertinent History History: No Pertinent History Psycho-Social History: Attention Deficit Disorder, Other Male Reproductive Disorders: No Pertinent History Other Medical History: meningitis, hx of cervical fx with chronic pain, fx nose - Past Surgical History Past Surgical History: Yes Neuro Surgical History: No Pertinent History Cardiac: No Pertinent History Respiratory: No Pertinent History Gastrointestinal: No Pertinent History Genitourinary: No Pertinent History Musculoskeletal: No Pertinent History Male Surgical History: No Pertinent History Other Surgical History: TONSILS - Social History Smoking Status: Current every day smoker How long have you smoked: 4 years Exposure to second hand smoke: Yes Alcohol Use: None Drug Use: marijuana Patient Lives Alone: No Significant Family History: no pertinent family hx - Physical Exam General Appearance: no apparent distress, alert, other (Conjunctival injection observed both eyes. Patient denies any visual complaints. Patient appears somewhat agitated.) Eye Exam: PERRL/EOMI, eyes nml inspection Ears, Nose, Throat Exam: normal ENT inspection, moist mucous membranes, other (Tenderness to palpation at C7 spinous process. Overlying soft tissue intact no signs of trauma.) Neck Exam: normal inspection, non-tender, supple, full range of motion Respiratory Exam: normal breath sounds, lungs clear, No respiratory distress Cardiovascular Exam: regular rate/rhythm, normal heart sounds Gastrointestinal/Abdomen Exam: soft, No tenderness, No mass Back Exam: normal inspection, No CVA tenderness, No vertebral tenderness Extremity Exam: normal inspection, normal range of motion Neurologic Exam: alert, oriented x 3, cooperative, normal mood/affect, sensation nml, No motor deficits Skin Exam: normal color, warm, dry Lymphatic Exam: No adenopathy SpO2 Interpretation: normal SpO2: 100 O2 Delivery: Room Air - Course Nursing assessment & vital signs reviewed: Yes EKG Interpreted by Me: RATE (99), Sinus Rhythm, NORMAL AXIS, NORMAL INTERVALS - Progress Progress: improved Air Movement: good Progress Note: 05/24/20 07:33 Work-up pending. Imaging studies pending. Patient endorsed to Dr. Chu at approximately 7 AM for review of pending studies and final disposition. Blood Culture(s) Obtained: No Antibiotics given: No - Departure Clinical Impression: Conjunctival injection, Neck pain, Chest pain Condition: Stable Critical Care Time: No Referrals: OSMIN MULLINS MD [Primary Care Provider] - Additional Instructions: Follow-up with your primary care physician for further management. <CARLITA CHU - Last Filed: 05/24/20 09:32> - Nursing Vital Signs Nursing Vital Signs: Initial Vital Signs Temperature 97.0 F 05/24/20 06:24 Pulse Rate 102 H 05/24/20 06:24 Respiratory Rate 22 05/24/20 06:24 Blood Pressure 130/88 05/24/20 06:24 O2 Sat by Pulse Oximetry 100 05/24/20 06:24 Pain Scale Pain Intensity 8 Ordered Tests: Active Orders 24 hr Category Date Time Status Case Supervisor STAT Care 05/24/20 06:53 Active EKG-ER Only STAT Care 05/24/20 06:52 Active IV Insertion STAT Care 05/24/20 06:52 Active Pulse Oximetry (ED) STAT Care 05/24/20 06:52 Active CERVICAL SPINE WO CONTRAST [CT] Stat Exams 05/24/20 06:58 Completed CHEST 1 VIEW (PORTABLE) Stat Exams 05/24/20 06:53 Completed ACETAMINOPHEN Stat Lab 05/24/20 07:09 Completed CBC W DIFF Stat Lab 05/24/20 07:09 Completed CMP Stat Lab 05/24/20 07:09 Completed D-DIMER QUANTITATIVE Stat Lab 05/24/20 07:09 Completed ETHYL ALCOHOL Stat Lab 05/24/20 07:09 Completed MAGNESIUM Stat Lab 05/24/20 07:09 Completed SALICYLATE Stat Lab 05/24/20 07:09 Completed TROPONIN Q3H Lab 05/24/20 07:09 Completed TROPONIN Q3H Lab 05/24/20 10:00 Ordered TROPONIN Q3H Lab 05/24/20 13:00 Ordered TROPONIN Q3H Lab 05/24/20 16:00 Ordered TROPONIN Q3H Lab 05/24/20 19:00 Ordered Medication Summary Discontinued Medications Generic Name Dose Route Start Last Admin Trade Name Freq PRN Reason Stop Dose Admin Sodium Chloride 1,000 mls @ 999 mls/hr 05/24/20 06:52 05/24/20 08:19 Sodium Chloride 0.9% 1000 Ml IV 05/24/20 07:52 Infused .Q1H1M STA Infusion Lab/Rad Data: Laboratory Result Diagrams 05/24/20 07:09 05/24/20 07:09 Laboratory Results 05/24/20 05/24/20 05/24/20 Range/Units 07:09 07:09 07:09 WBC (4.0-10.5) K/mm3 RBC (4.1-5.6) M/mm3 Hgb (12.5-18.0) gm/dl Hct (42-50) % MCV (78-100) fl MCH (26-32) pg MCHC (32-36) g/dl RDW (11.5-14.0) % Plt Count (150-450) K/mm3 MPV (7.5-11.0) fl Gran % (36.0-66.0) % Eos # (Auto) (0-0.5) Absolute Lymphs (auto) (1.0-4.6) Absolute Monos (auto) (0.0-1.3) Lymphocytes % (24.0-44.0) % Monocytes % (0.0-12.0) % Eosinophils % (0.00-5.0) % Basophils % (0.0-0.4) % Absolute Granulocytes (1.4-6.9) Basophils # (0-0.4) D-Dimer < 215 L (215-500) ng/mL Sodium (137-145) mmol/L Potassium (3.5-5.1) mmol/L Chloride (98-107) mmol/L Carbon Dioxide (22-30) mmol/L Anion Gap (5-15) MEQ/L BUN (9-20) mg/dL Creatinine (0.66-1.25) mg/dL Estimated GFR ML/MIN Glucose (74-106) mg/dL Calcium (8.4-10.2) mg/dL Magnesium (1.6-2.3) mg/dL Total Bilirubin (0.2-1.3) mg/dL AST (17-59) U/L ALT (0-50) U/L Alkaline Phosphatase (38-126) U/L Troponin I < 0.012 (0.000-0.034) ng/mL Serum Total Protein (6.3-8.2) g/dL Albumin (3.5-5.0) g/dL Salicylates < 1.0 L (2-20) mg/dL Acetaminophen < 10 L (10-30) ug/ml Ethyl Alcohol < 10 (0-10) mg/dL 05/24/20 05/24/20 Range/Units 07:09 07:09 WBC 7.7 (4.0-10.5) K/mm3 RBC 4.76 (4.1-5.6) M/mm3 Hgb 14.7 (12.5-18.0) gm/dl Hct 42.8 (42-50) % MCV 89.9 (78-100) fl MCH 30.9 (26-32) pg MCHC 34.3 (32-36) g/dl RDW 12.6 (11.5-14.0) % Plt Count 291 (150-450) K/mm3 MPV 10.1 (7.5-11.0) fl Gran % 64.9 (36.0-66.0) % Eos # (Auto) 0.14 (0-0.5) Absolute Lymphs (auto) 1.90 (1.0-4.6) Absolute Monos (auto) 0.64 (0.0-1.3) Lymphocytes % 24.6 (24.0-44.0) % Monocytes % 8.3 (0.0-12.0) % Eosinophils % 1.8 (0.00-5.0) % Basophils % 0.4 (0.0-0.4) % Absolute Granulocytes 5.01 (1.4-6.9) Basophils # 0.03 (0-0.4) D-Dimer (215-500) ng/mL Sodium 139 (137-145) mmol/L Potassium 3.5 (3.5-5.1) mmol/L Chloride 104 (98-107) mmol/L Carbon Dioxide 25 (22-30) mmol/L Anion Gap 13.4 (5-15) MEQ/L BUN 15 (9-20) mg/dL Creatinine 0.95 (0.66-1.25) mg/dL Estimated GFR > 60.0 ML/MIN Glucose 129 H (74-106) mg/dL Calcium 10.4 H (8.4-10.2) mg/dL Magnesium 2.1 (1.6-2.3) mg/dL Total Bilirubin 0.70 (0.2-1.3) mg/dL AST 25 (17-59) U/L ALT 16 (0-50) U/L Alkaline Phosphatase 63 (38-126) U/L Troponin I (0.000-0.034) ng/mL Serum Total Protein 8.1 (6.3-8.2) g/dL Albumin 4.9 (3.5-5.0) g/dL Salicylates (2-20) mg/dL Acetaminophen (10-30) ug/ml Ethyl Alcohol (0-10) mg/dL - Progress Progress Note: 05/24/20 09:30 Chest x-ray shows no acute cardiopulmonary process CAT scan of the cervical spine shows no acute fracture or subluxation. This patient's urine specimen was in fact not urine. It was water from the sink specimen was cold the lab around the urine specimen and it showed that it was in fact water. I discussed this with the patient. Patient did not make a comment 1 way or the other. Patient has no further chest pain. Patient was asleep when we entered the room to discuss his results of his work-up. There is no emergency or urgent issue here. He is to follow-up with his primary care physician. Counseled pt/family regarding: lab results, diagnosis, need for follow-up, rad results - Departure Critical Care Time: No
--- NOTE | 2020-05-24 08:52 | XRAY ---
Indication: Neck pain. No acute injury. Multiple contiguous axial images obtained through the cervical spine. Sagittal and coronal reformatted images obtained. Comparison: December 31, 2019. Axial images again negative for acute fracture, suspicious bony lesions, or spinal canal stenosis. Sagittal and coronal reformatted images again demonstrates lordotic straightening, positional versus paraspinal spasm. Vertebral body heights/disc spaces maintained. No acute compression fracture, subluxation, or jumped facet. Normal appearing craniocervical junction. Visualized noncontrasted soft tissues including base of the brain and lung apices are unremarkable. Impression: 1. Stable lordotic straightening, positional versus paraspinal spasm. 2. Remaining CT cervical spine is negative.
--- NOTE | 2020-05-24 08:54 | XRAY ---
Indication: Short of breath. Comparison: May 01, 2019. Portable chest again hyperinflated with minimal right upper lobe fibrosis/scarring. Remaining heart and lungs unremarkable. Bony thorax intact again with mild scoliosis. Impression: Continued nonacute chest with chronic features.
[2020-05-24 09:51] VITALS: BP 107/62; PULSE 82; O2SAT 97
== END 2020-05-24 09:54 | disposition home or self-care (01) ==
LOC: ED 06:16
DX: R07.9 Chest pain, unspecified (principal); M54.2 Cervicalgia; R06.02 Shortness of breath; H11.89 Other specified disorders of conjunctiva; F17.200 Nicotine dependence, unspecified, uncomplicated; F19.90 Other psychoactive substance use, unspecified, uncomplicated
CPT/HCPCS: 36000; 36415; 71045; 72125; 80053; 80307; 83735; 84484; 85025; 85379; 93005; 93041; 94760; 99284; G0480

== ENCOUNTER 2021-06-26 18:36 | Emergency (ER) | payer MEDICAID ==
[2021-06-26] MEDS ORDERED: Zofran 4 MG/2 ML VIAL IV ONE (19:05)
[2021-06-26] MEDS ORDERED: TORAdol 30 mg Injection IV ONE (19:05)
[2021-06-26] MEDS ORDERED: TORAdol 30 mg Injection ONE (19:06)
[2021-06-26] MEDS ORDERED: Zofran 4 MG/2 ML VIAL ONE (19:06)
[2021-06-26] MEDS ORDERED: XYLOCAINE 1% HCL 20 ML MDV ONE (19:31)
[2021-06-26] MEDS ORDERED: XYLOCAINE 1% HCL 20 ML MDV IJ ONE (19:31)
[2021-06-26 19:54] VITALS: O2SAT 97
[2021-06-26] MEDS ORDERED: Rocephin 1000 MG INJ IM ONE (20:16)
--- NOTE | 2021-06-26 20:17 | ERPHSYRPT ---
- History of Present Illness Time Seen by Provider: 06/26/21 19:10 Source: patient Exam Limitations: no limitations Patient Subjective Stated Complaint: Laceration to right wrist Triage Nursing Assessment: Patient ambulated back to ED and transferred self to bed. Patient A+O X 3. Patient's skin pink, warm and dry. Patient states he was at work when a piece of steel cut his right arm. Patient has 5cm X 2cm laceration noted to wrist/forearm area. Patient complains of pain 11/19. Assessment completed per Hardeep Bertrand RN under [facility] Account. Physician History: Patient is a 21-year-old male presents to emergency department for evaluation and treatment of a laceration on his right forearm. Patient was at work when a piece of metal sliced through his forearm. The laceration occurred at the volar aspect. Patient states he is having difficulty moving his fingers. Injury occurred just prior to arrival. No other injuries reported. Tetanus up-to-date. Pain described as an ache that is localized. No radiation. Pain worse with movement and palpation. Pain improved with rest. No active bleeding observed at this time. Patient is right-hand dominant. Patient is otherwise healthy. He voices no other complaints or concerns at this time. Occurred: just prior to arrival Method of Injury: other (Laceration occurred due to a sharp edged object while at work) Quality: constant Severity of Pain-Max: moderate Severity of Pain-Current: mild Extremities Pain Location: forearm: right Modifying Factors: Improves With: movement Associated Symptoms: none Allergies/Adverse Reactions: No Known Drug Allergies Allergy (Verified 06/26/21 18:45) Home Medications: Dexmethylphenidate HCl [Focalin Xr] 30 mg PO DAILY 08/23/17 [History] Gabapentin 600 mg PO TID 06/23/19 [History] Tizanidine HCl 4 mg PO HS 01/08/20 [History] Hx Tetanus, Diphtheria Vaccination/Date Given: Yes Hx Influenza Vaccination/Date Given: No Hx Pneumococcal Vaccination/Date Given: No Immunizations Up to Date: Yes Travel Risk - International Travel Have you traveled outside of the country in past 3 weeks: No - Coronavirus Screening Are you exhibiting any of the following symptoms?: No Close contact with a COVID-19 positive Pt in past 14-21 Days: No - Vaccine Status Have you recieved a Covid-19 vaccination: No - Review of Systems Constitutional: No Symptoms, No Fever, No Chills Eyes: No Symptoms Ears, Nose, & Throat: No Symptoms Respiratory: No Symptoms, No Cough, No Dyspnea Cardiac: No Symptoms, No Chest Pain, No Edema, No Syncope Abdominal/Gastrointestinal: No Symptoms, No Abdominal Pain, No Nausea, No Vomiting, No Diarrhea Genitourinary Symptoms: No Symptoms, No Dysuria Musculoskeletal: No Symptoms, No Back Pain, No Neck Pain Skin: No Symptoms, No Rash Neurological: No Symptoms, No Dizziness, No Focal Weakness, No Sensory Changes Psychological: No Symptoms Endocrine: No Symptoms Hematologic/Lymphatic: No Symptoms Immunological/Allergic: No Symptoms All Other Systems: Reviewed and Negative - Past Medical History Pertinent Past Medical History: Yes Neurological History: Migraines, Seizures, Other ENT History: No Pertinent History Cardiac History: No Pertinent History Respiratory History: Asthma Endocrine Medical History: No Pertinent History Musculoskeletal History: No Pertinent History GI Medical History: No Pertinent History History: No Pertinent History Psycho-Social History: Attention Deficit Disorder, Other Male Reproductive Disorders: No Pertinent History Other Medical History: meningitis, hx of cervical fx with chronic pain, fx nose - Past Surgical History Past Surgical History: Yes Neuro Surgical History: No Pertinent History Cardiac: No Pertinent History Respiratory: No Pertinent History Gastrointestinal: No Pertinent History Genitourinary: No Pertinent History Musculoskeletal: No Pertinent History Male Surgical History: No Pertinent History Other Surgical History: TONSILS - Social History Smoking Status: Current every day smoker How long have you smoked: 4 years Exposure to second hand smoke: Yes Alcohol Use: None Drug Use: marijuana Patient Lives Alone: Yes Significant Family History: no pertinent family hx - Nursing Vital Signs Nursing Vital Signs: Initial Vital Signs Temperature 98.0 F 06/26/21 18:46 Pulse Rate 52 L 06/26/21 18:46 Respiratory Rate 18 06/26/21 18:46 Blood Pressure 115/75 06/26/21 18:46 O2 Sat by Pulse Oximetry 100 06/26/21 18:46 Pain Scale Pain Intensity 8 - Physical Exam General Appearance: no apparent distress, alert Eyes, Ears, Nose, Throat Exam: moist mucous membranes Neck Exam: non-tender, supple Cardiovascular/Respiratory Exam: chest non-tender, normal breath sounds, regular rate/rhythm, heart sounds normal, no respiratory distress Abdominal Exam: non-tender, soft, No guarding Back Exam: normal inspection, No vertebral tenderness Shoulder Exam: normal inspection, non-tender, no evidence of injury, normal ROM Elbow/Forearm Exam: limited ROM, pain (There is a 6 cm x 2.5 cm open wound with exposed muscle and tendon. There appears to be damage to both structures. Patient perfusing well distally.), soft tissue tenderness (Cap refill less than 2 seconds. Radial pulse palpable. Compartments are soft.), swelling Hand Exam: normal inspection, non-tender, no evidence of injury, normal ROM Neuro/Tendon Exam: normal sensation, tendon function deficit, No normal tendon functions (Tendon function appears to be compromised.), No no evidence tendon injury Mental Status Exam: alert, oriented x 3, cooperative, No agitated Skin Exam: normal color, warm, dry SpO2 Interpretation: normal SpO2: 97 O2 Delivery: Room Air - Course Nursing assessment & vital signs reviewed: Yes - Radiology Exams Forearm X-ray Interpretation: Interpreted by me (Soft tissue defect observed. No foreign body observed. No fractures or dislocations) Ordered Tests: Active Orders 24 hr Category Date Time Status IV Insertion STAT Care 06/26/21 19:05 Active FOREARM Stat Exams 06/26/21 19:49 Ordered Medication Summary Discontinued Medications Generic Name Dose Route Start Last Admin Trade Name Freq PRN Reason Stop Dose Admin Ketorolac Tromethamine 30 mg 06/26/21 19:05 06/26/21 19:09 Ketorolac Tromethamine 30 Mg/Ml Inj IV 06/26/21 19:06 30 mg STAT ONE Administration Ketorolac Tromethamine Confirm 06/26/21 19:06 Ketorolac Tromethamine 30 Mg/Ml Inj Administered 06/26/21 19:07 Dose 30 mg .ROUTE .STK-MED ONE Lidocaine HCl 10 ml 06/26/21 19:31 06/26/21 19:33 Lidocaine Hcl 1% 20 Ml Mdv 20 Ml Ml IJ 06/26/21 19:32 10 ml STAT ONE Administration Lidocaine HCl Confirm 06/26/21 19:31 Lidocaine Hcl 1% 20 Ml Mdv 20 Ml Ml Administered 06/26/21 19:32 Dose 10 ml .ROUTE .STK-MED ONE Ondansetron HCl 4 mg 06/26/21 19:05 06/26/21 19:09 Ondansetron Hcl 4 Mg/2 Ml Vial IV 06/26/21 19:06 4 mg STAT ONE Administration Ondansetron HCl Confirm 06/26/21 19:06 Ondansetron Hcl 4 Mg/2 Ml Vial Administered 06/26/21 19:07 Dose 4 mg .ROUTE .STK-MED ONE - Progress Progress: improved Progress Note: Patient's wound edges were anesthetized using 2% lidocaine. Pain well controlled at this time. Zofran administered for nausea. Case discussed with Dr. Claros hand surgeon at [facility] who accepts transfer. Dr. Claros's request wound edges were approximated using 5-0 nylon. Patient neurovascular tact distally post procedure. No compromise of neurovascular status. Patient will be transferred to [facility]. Patient agrees to the plan of care. Father at bedside also agrees. Patient's tetanus up-to-date prior to arrival. Patient received a 1 g dose of Rocephin IM. Wound was dressed with a sterile dressing. Wrist immobilized. Patient transferred to [facility] for further evaluation and treatment. Portions of this note were created with voice recognition technology. There may be grammatical, spelling, punctuation or sound alike errors 06/26/21 20:[address] Other ([place]) Will see patient in: other (Transfer to [facility]) Counseled pt/family regarding: diagnosis, rad results - Departure Departure Disposition: Transfer Clinical Impression: Forearm laceration, Injury of muscle and tendon at forearm level Condition: Stable Critical Care Time: No Referrals: OSMIN MULLINS MD [Primary Care Provider] - Follow up/PCP as directed
[2021-06-26] MEDS ORDERED: Rocephin 1000 MG INJ ONE (20:19)
[2021-06-26] MEDS ORDERED: NORCO 5/325 MG PO ONE (20:33)
[2021-06-26] MEDS ORDERED: NORCO 5/325 MG ONE (20:34)
[2021-06-26 20:50] VITALS: PULSE 64
[2021-06-26 21:09] VITALS: BP 120/78
[2021-06-26 22:08] LABS: Amphetamine,Urine NEGATIVE (NEGATIVE); Barbiturate,Urine NEGATIVE (NEGATIVE); Benzodiazepine,Urine NEGATIVE (NEGATIVE); Cocaine,Urine NEGATIVE (NEGATIVE); Methadone,Urine NEGATIVE (NEGATIVE); Opiate,Urine NEGATIVE (NEGATIVE); PCP,Urine NEGATIVE (NEGATIVE); THC,Urine NEGATIVE (NEGATIVE)
--- NOTE | 2021-06-27 08:45 | XRAY ---
Indication: Laceration. Comparison: None 2 view right forearm demonstrates minimal distal anterior soft tissue swelling, site of laceration. 8mm round radiopacity anterior midforearm only seen on lateral view either external or artifactual. No other bony, articular, or soft tissue abnormalities.
== END 2021-06-26 21:15 | disposition short-term general hospital (02) ==
LOC: ED 18:36
DX: S51.811A Laceration without foreign body of right forearm, initial encounter (principal); S56.921A Laceration of unspecified muscles, fascia and tendons at forearm level, right arm, initial encounter; W26.8XXA Contact with other sharp object(s), not elsewhere classified, initial encounter; Y99.0 Civilian activity done for income or pay; Z72.0 Tobacco use; Z79.899 Other long term (current) drug therapy
CPT/HCPCS: 36000; 73090; 80307; 96372; 96374; 96375; 99284; J0696; J1885; J2405; A9270-GY

== ENCOUNTER 2023-03-22 20:32 | Emergency (ER) | payer MEDICAID ==
--- NOTE | 2023-03-22 21:41 | ERPHSYRPT ---
- History of Present Illness Time Seen by Provider: 03/22/23 21:41 Source: patient, family Exam Limitations: no limitations Physician History: This is a 23-year-old white male patient who has an opiate use disorder and has been placed on Suboxone in the past. He used a Percocet from another person earlier today and soon after he has had urinary retention. This has happened to him in the past. He only has 2 more Flomax left. He took a Flomax earlier today which did not help relieve his urinary retention. He is asked to get a refill on his Flomax as his primary care physician is retiring. Patient has not had a fever. He had no nausea vomiting or diarrhea symptoms. Patient has a seizure disorder as well as asthma. He smokes cigarettes daily and admits to marijuana use as well as the opiate use. Activites at Onset: none Quality: fullness (Suprapubic region), pressure (Suprapubic region) Onset Location: suprapubic Pain Radiation: none Severity of Pain-Max: mild Severity of Pain-Current: mild Modifying Factors: Improves With: nothing Associated Symptoms: other (Urinary retention) Prior abdominal problems: none Sexual intercourse history: non-contributory Allergies/Adverse Reactions: No Known Drug Allergies Allergy (Verified 03/22/23 21:37) Home Medications: Gabapentin 600 mg PO TID 06/23/19 [History] Tizanidine HCl 4 mg PO HS 01/08/20 [History] Dextroamphetamine/Amphetamine [Adderall 10 mg Tablet] 2 tab PO BID 03/22/23 [History] Hx Tetanus, Diphtheria Vaccination/Date Given: Yes Hx Influenza Vaccination/Date Given: No Hx Pneumococcal Vaccination/Date Given: No Travel Risk - International Travel Have you traveled outside of the country in past 3 weeks: No - Coronavirus Screening Are you exhibiting any of the following symptoms?: No Close contact with a COVID-19 positive Pt in past 14-21 Days: No - Vaccine Status Have you recieved a Covid-19 vaccination: No - Past Medical History Pertinent Past Medical History: Yes Neurological History: Migraines, Seizures, Other ENT History: No Pertinent History Cardiac History: No Pertinent History Respiratory History: Asthma Endocrine Medical History: No Pertinent History Musculoskeletal History: No Pertinent History GI Medical History: No Pertinent History History: No Pertinent History Psycho-Social History: Attention Deficit Disorder, Other Male Reproductive Disorders: No Pertinent History Other Medical History: meningitis, hx of cervical fx with chronic pain, fx nose - Past Surgical History Past Surgical History: Yes Neuro Surgical History: No Pertinent History Cardiac: No Pertinent History Respiratory: No Pertinent History Gastrointestinal: No Pertinent History Genitourinary: No Pertinent History Musculoskeletal: No Pertinent History Male Surgical History: No Pertinent History Other Surgical History: TONSILS - Social History Smoking Status: Current every day smoker How long have you smoked: 4 years Exposure to second hand smoke: Yes Alcohol Use: None Drug Use: marijuana Patient Lives Alone: Yes Significant Family History: no pertinent family hx - Review of Systems Constitutional: No Symptoms Eyes: No Symptoms Ears, Nose, & Throat: No Symptoms Respiratory: No Symptoms Cardiac: No Symptoms Abdominal/Gastrointestinal: Abdominal Pain (Suprapubic pressure) Genitourinary Symptoms: Urinary Retention Musculoskeletal: No Symptoms Skin: No Symptoms Neurological: No Symptoms Psychological: No Symptoms Endocrine: No Symptoms Hematologic/Lymphatic: No Symptoms Immunological/Allergic: No Symptoms All Other Systems: Reviewed and Negative - Nursing Vital Signs Nursing Vital Signs: Initial Vital Signs Pulse Rate 80 03/22/23 21:39 Respiratory Rate 16 03/22/23 21:39 Blood Pressure 131/89 03/22/23 21:39 O2 Sat by Pulse Oximetry 99 03/22/23 21:39 Pain Scale Pain Intensity 0 - Physical Exam General Appearance: no apparent distress, alert, anxiety Eye Exam: PERRL/EOMI Ears, Nose, Throat Exam: normal ENT inspection, moist mucous membranes Neck Exam: normal inspection, non-tender, supple, full range of motion Respiratory Exam: normal breath sounds, lungs clear, airway intact, No chest tenderness, No respiratory distress Cardiovascular Exam: regular rate/rhythm, normal heart sounds, normal peripheral pulses Gastrointestinal/Abdomen Exam: soft, normal bowel sounds, No tenderness Rectal Exam: not done Back Exam: normal inspection, normal range of motion, No CVA tenderness, No vertebral tenderness Extremity Exam: normal inspection, normal range of motion, pelvis stable Neurologic Exam: alert, oriented x 3, cooperative, tar leveler II-XII nml as tested, normal mood/affect, nml cerebellar function, nml station & gait, sensation nml Skin Exam: normal color, warm, dry Lymphatic Exam: No adenopathy SpO2 Interpretation: normal O2 Delivery: Room Air - Course Nursing assessment & vital signs reviewed: Yes Ordered Tests: Active Orders 24 hr Category Date Time Status Cortez [Catheter-[place] Cortez] STAT Care 03/22/23 22:00 Active CULTURE,URINE Stat Lab 03/22/23 22:02 Received UA W/RFX UR CULTURE Stat Lab 03/22/23 22:02 Completed Lab/Rad Data: Laboratory Results 03/22/23 03/22/23 Range/Units 22:02 22:02 Urine Color Yellow (Yellow) Urine Appearance Clear (Clear) Urine pH 6.5 (4.6-8.0) Ur Specific [place] 1.010 (1.005-1.030) Urine Protein Negative (Negative) Urine Glucose (UA) Negative (Negative) mg/dL Urine Ketones Negative (Negative) Urine Blood Negative (Negative) Urine Nitrite Negative (Negative) Urine Bilirubin Negative (Negative) Urine Urobilinogen 1.0 A (0.2) mg/dL Ur Leukocyte Esterase Negative (Negative) U Hyaline Cast (Auto) NONE SEEN (0-2) /LPF Urine Microscopic RBC 0-2 (0-5) /HPF Urine Microscopic WBC 0-2 (0-5) /HPF Ur Epithelial Cells None Seen (None Seen) /HPF Urine Bacteria None Seen (None Seen) /HPF Urine Culture Reflexed ORDERED SEPARATELY (NO) Chlamydia DNA Probe NOT DETECTED (NEGATIVE) N.gonorrhoeae DNA Probe NOT DETECTED (NEGATIVE) - Progress Progress: improved, re-examined Progress Note: 03/22/23 22:24 This patient's medical issue is 1 of low complexity. The level complex in the workup performed is based on review of the patient's past medical history, review the patient's medication list, review the patient's drug allergy list and physical findings on examination. We placed a Cortez catheter in this patient. He has over 500 mL drained immediately and is still having urine flow into the bag. His symptoms have nearly completely resolved. Patient states that he would like to have the Cortez catheter removed prior to his discharge. He also would like a Flomax prescription which we will remotely send to his pharmacy. We are also sending a urinalysis looking for a urinary tract infection and checking his urine for chlamydia and gonorrhea. 03/22/23 22:25 Counseled pt/family regarding: lab results, diagnosis, need for follow-up Medical Desision Making - Diagnostic Testing Diagnostic test were ordered, analyzed, and reviewed by me: Yes - Risk of complications The pt has a mod risk of morbidity or mortality based on: Need for prescription drug management - Departure Departure Disposition: Home Clinical Impression: Urinary retention Condition: Stable Critical Care Time: No Referrals: RICK BEAN [Primary Care Provider] - Follow up/PCP as directed Additional Instructions: Drink plenty of fluids. Use Tylenol and ibuprofen, if there are no contraindications, for pain control. Contact your primary care provider and urologist tomorrow, 03/23/2023, to arrange an appointment to be evaluated next 3 to 5 days for further evaluation management. Prescriptions: Tamsulosin HCl 0.4 mg [Flomax 0.4 MG] 0.4 mg PO DAILY #7 cap
[2023-03-22 22:07] VITALS: TEMP 98; O2SAT 99
[2023-03-22 22:08] VITALS: RESP 18
[2023-03-22 22:17] LABS: Appearance Clear (Clear); Bacteria None Seen /HPF (None Seen); Bilirubin Negative (Negative); Blood Negative (Negative); Epithelial Cells None Seen /HPF (None Seen); Glucose, Urine Negative (Negative); Hyaline Casts NONE SEEN /LPF (0-2); Ketones Negative (Negative); Leukocyte Esterase Negative (Negative); Nitrite Negative (Negative); Ph 6.5 (4.6-8.0); Protein,Urine Dip Negative (Negative); RBC 0-2 /HPF (0-5); WBC 0-2 /HPF (0-5)
[2023-03-22 22:25] LABS: ADD URINE CULTURE? ORDERED SEPARATELY (NO)
[2023-03-22 23:42] LABS: CHLAMYDIA DNA NOT DETECTED (NEGATIVE); GC DNA Probe NOT DETECTED (NEGATIVE)
[2023-03-23 00:22] VITALS: BP 111/65; PULSE 76
== END 2023-03-23 00:25 | disposition home or self-care (01) ==
LOC: ED 20:32
DX: R33.9 Retention of urine, unspecified (principal); Z79.899 Other long term (current) drug therapy; Z28.310 Unvaccinated for COVID-19; Z72.0 Tobacco use
CPT/HCPCS: 51702; 81001; 87086; 87491; 87591; 99283

== ENCOUNTER 2024-08-06 22:30 | Emergency (ER) | payer MEDICAID ==
[2024-08-06 22:36] VITALS: TEMP 97.9
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
[2024-08-06] MEDS ORDERED: PERCOCET TABLET 5/325MG ONE (22:51)
[2024-08-06] MEDS ORDERED: MOTRIN 600 MG ONE (22:51)
[2024-08-06] MEDS: PERCOCET TABLET 5/325MG PO STA (22:52)
[2024-08-06] MEDS: MOTRIN 600 MG PO ONE (22:52)
[2024-08-06 23:23] VITALS: BP 99/68; PULSE 85; RESP 20; O2SAT 99
--- NOTE | 2024-08-07 08:41 | XRAY ---
Indication: Injury. Comparison: April 15, 2014 3 view right hand demonstrates new mildly angulated fracture shaft 5th metacarpal with soft tissue swelling. No other bony, articular, or soft tissue abnormalities.
== END 2024-08-06 23:43 | disposition home or self-care (01) ==
LOC: ED 22:30
DX: S62.336A Displaced fracture of neck of fifth metacarpal bone, right hand, initial encounter for closed fracture (principal); W23.0XXA Caught, crushed, jammed, or pinched between moving objects, initial encounter; Z79.891 Long term (current) use of opiate analgesic; Z79.899 Other long term (current) drug therapy; Z72.0 Tobacco use
CPT/HCPCS: 29125; 73130; 99283; A9270-GY